=== PATIENT | male | born 1980 | race Caucasian/White ===

== ENCOUNTER → 2020-01-09 10:44 | Outpatient (BNVA) | payer MEDICAID, SELFPAY | PROVIDERS: Visit Provider Orthopaedic Surgery | DX: Z01.812 Encounter for preprocedural laboratory examination (principal); Z20.828 Contact with and (suspected) exposure to other viral communicable diseases | CPT/HCPCS: 87635 ==

== ENCOUNTER → 2020-01-15 05:38 | Day surgery (SDC) | payer MEDICAID, SELFPAY ==
[2020-01-14 09:43] VITALS: BMI 26.2
[2020-01-15] VITALS (10 sets, daily range): BP systolic 133–158; BP diastolic 88–96; PULSE 71–86; RESP 16–20; TEMP 36.1–36.7; O2SAT 95–100
--- NOTE | 2020-01-15 | XR_ITS ---
WS: [id number] Exam: XR lumbar spine 2-3V* [id number] Date/Time of Exam: 01/15/2020 12:00 AM Reason For Exam: DORSALGIA, INTERVERTEBRAL DISC PLACEMENT Limited AP and lateral C-arm images of the lower lumbar spine are submitted for evaluation. Surgical instruments are located at the level of the L4-5 disc in both the AP and lateral projections . This is apparently for surgical localization and planning. The visualized bony elements of the lowe r lumbar spine are otherwise unremarkable in appearance.
[2020-01-15] MEDS: gabapentin 300 mg Capsule PO (06:07)
[2020-01-15] MEDS: sodium chloride 0.9% 1,000 ML 30 ML IV (06:07)
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
--- NOTE | 2020-01-15 06:32 | W.PM.OPSUD ---
Surgery/Procedure H&P Update DATE OF PROCEDURE: January 15, 2020 DATE H&P PERFORMED: 01/09/20 H&P UPDATE INFORMATION: I have reviewed H&P completed within last 30 days, I have examined patient prior to procedure and No changes to prior documentation PREOP DIAGNOSIS: L4/5 Disk herniation and L5/S1 stenosis PLANNED PROCEDURE: Operation Date: 01/15/20 07:00 Proposed Procedures p Left L4-L5 discectomy L4-S1 Laminectomy 77686 28732 82755 27732 M54.9 M51.26(Left) - Seferino Toledo DO
--- NOTE | 2020-01-15 08:58 | SUR.OPER ---
MIDAS DRILL, MICROSCOPE AND C-ARM USED FOR PROCEDURE.
--- NOTE | 2020-01-15 10:38 | P.OP_ITS ---
Operative Report Date of procedure: January 15, 2020 Pre-op Diagnosis: L4/5 Disk herniation and L5/S1 stenosis Post-op diagnosis: same Procedure Done: 1. Laminectomy L4-5 with partial facetectomy and discectomy 2.Laminectomy L5/S1 with partial facetectomy Surgeon: Seferino Toledo Anesthesia: General Estimated blood loss (mL): 25 Condition: stable Disposition: PACU Procedure: Patient was brought to the operative suite placed in the prone position all areas of impingement were well padded patient was prepped and draped in normal sterile fashion skin sutures made at the L4-5 level confirming under C-arm guidance dilators were passed tubular retractor was inserted. See roscope was brought in and soft tissue was taken down with a Bovie. Next a drill was used to perform the laminectomy and partial facetectomy. Kerrison rongeurs and curettes were used to take down the remaining bone. Ligamentum flavum was taken down the ligament flavum was thickened the facet was then taken down medially the L5 nerve root was retracted medially discectomy was performed however patient had a hard disc did remove some of the disc enough to get the nerve root 3. Dura was in good repair wound was irrigated bleeding was coagulated with Surgi-Kb and bipolar Attention was then brought to the L5-S1 level again dilators of were passed tubular retractor was inserted direct visualization of the L5-S1 facet and lamina were identified. Bovie was used to clear the soft tissues. High-speed bur was used to perform the laminectomy and partial facetectomy. Curette and Kerrisons were used to take down remaining bone. Ligamentum flavum again was taken down from L5-S1. Ligamentum was seen and thickened dura was good repair partial mastectomies performed using high-speed bur and Kerrison S1 nerve root and was completely freed L5-S1 foramen in the S1 nerve root were traced and felt to be adequate decompress wounds were irrigated surgically was inserted and patient was was closed with 2-0 Vicryl and Monocryl suture and skin glue. Cell dressings were applied patient was transferred to the PACU in stable condition tape suture care assist is [facility] persist no complications you are coughing thanks thank you
--- NOTE | 2020-01-15 11:15 | SUR.PHASEI ---
1108- ORAL AIRWAY OUT, SAT 97% WITH ROOM AIR
--- NOTE | 2020-01-15 11:20 | ANE.PACU2 ---
Inpatient post-anesthesia follow up: Vital signs: Temperature 97.6 F Pulse Rate 72 Respiratory Rate 18 Blood Pressure 146/94 Pulse Oximetry 96 Oxygen Delivery Me thod Room Air Oxygen Flow Rate 6 Fraction of Inspir ed Oxygen Hydration adequate: Yes Nausea and vomiting: No Pain level: 5 Mental status: Baseline
[2020-01-15] MEDS: HYDROcodone-acetaminophen 5-325 mg Tablet 1 TAB PO (12:00)
--- NOTE | 2020-01-16 | SCC_ITS ---
Procedure Done: 1. Laminectomy L4-5 with partial facetectomy and discectomy 2.Laminectomy L5/S1 with partial facetectomy 22.6 seconds of fluoroscopic guidance, for a cumulative dose of 7.28 mGy, was provided to Dr. Toledo by the radiology department. C-arm images of the lumbar spine were saved for the patient's permanent record. [facility]
== END | disposition home or self-care (01) ==
PROVIDERS: PCP Family Medicine; Visit Provider Orthopaedic Surgery
PROC: 0RB30ZZ Excision of Cervical Vertebral Disc, Open Approach (ICD-10-PCS; CPT 22551; principal; 2020-01-15 07:00)
DX: M51.26 Other intervertebral disc displacement, lumbar region (principal); M48.07 Spinal stenosis, lumbosacral region; F17.290 Nicotine dependence, other tobacco product, uncomplicated
CPT/HCPCS: 63047; 63048; 12345; 72100; 76000; 96365; J0330; J0690; J1100; J2405; J2704; J3010; J3490; J7030

== ENCOUNTER 2020-04-23 06:00 | Outpatient (RCR) | payer MEDICAID, SELFPAY | END 2020-05-17 23:59 | disposition home or self-care (01) | LOC: MPT 06:00 | PROVIDERS: PCP Family Medicine; Referring Provider Orthopaedic Surgery; Visit Provider Orthopaedic Surgery | DX: Z47.89 Encounter for other orthopedic aftercare (principal) | CPT/HCPCS: 97110; 97140; 97161; 97530 ==

== ENCOUNTER 2020-05-26 08:59 | Outpatient (CLI) | payer MEDICAID, SELFPAY ==
--- NOTE | 2020-05-26 09:30 | MR_ITS ---
WS: [id number] MRI LUMBAR SPINE NONCONTRAST TECHNIQUE: Sagittal T1, T2 and STIR imaging. Axial T1 and T2 imaging. CLINICAL INFORMATION: M54.16 - Radiculopathy, lumbar region COMPARISON: None. FINDINGS: Small syrinx in the mid and lower thoracic cord seen on the maintenance chief imaging. This can be further evalua julio with thoracic spine MRI. Mild lumbar curve. No acute compression. Mild annular bulging L4-L5 and L5-S1. Prior hemilaminectomy left L4-5. L1-L2: Normal. L2-L3: Normal. L3-L4: Mild annular bulging with endplate ridging. Mild facet arthropathy. Mild left and no significa nt right foraminal narrowing. Mild facet arthropathy. L4-L5: Prior hemilaminectomy left L4-5. Mild facet arthropathy. Mild annular bulging with slight impi ngement on the left subarticular recess and traversing left L5 nerve root. Tiny annular fissure at th is level. Foramen are patent. L5-S1: Mild annular bulging with slight effacement of the ventral thecal sac. Mild facet arthropathy. Spinal canal and foramen are patent. Visualized pelvic bony structures: Normal. Paravertebral soft tissues: Normal. MR/MR lumbar spine wo con* [id number] IMPRESSION: 1. Prior hemilaminectomy left L4-5. Mild annular bulging with slight impingeme nt on the left subarticular recess and traversing left L5 nerve Tiny annular fi ssure at this level. 2. Mild left L3-4 bony foraminal narrowing. 3. Mild facet arthropathy L3-L5. 4. Small syrinx seen in the mid and lower thoracic cord on the maintenance chief imaging. Recommend further evaluation with thoracic spine MRI without and with gadoliniu m enhancement.
== END 2020-05-26 09:00 | disposition home or self-care (01) ==
LOC: RADSHAW 09:01
PROVIDERS: PCP Family Medicine; Visit Provider Orthopaedic Surgery
DX: M54.16 Radiculopathy, lumbar region (principal); M47.816 Spondylosis without myelopathy or radiculopathy, lumbar region; M96.1 Postlaminectomy syndrome, not elsewhere classified
CPT/HCPCS: 72120; 72148

== ENCOUNTER → 2020-06-08 12:48 | Outpatient (BNVA) | payer MEDICAID, SELFPAY | PROVIDERS: PCP Family Medicine; Visit Provider Orthopaedic Surgery | DX: Z01.818 Encounter for other preprocedural examination (principal) | CPT/HCPCS: 87635 ==

== ENCOUNTER 2020-06-12 10:25 | Day surgery (SDC) | payer MEDICAID, SELFPAY ==
[2020-06-01 11:07] VITALS: BMI 27.5
--- NOTE | 2020-06-01 11:58 | ANES.PREANE2 ---
Pre-Anesthetic Assessment Pre-Anesthetic Assessment: Height/Weight: Height 1.91 m Weight 99.79 kg Preop Diagnosis: lumbar stenosis Proposed Procedure: Operation Date: 06/12/20 12:00 Proposed Procedures p decompression with revision L4/5 84668 m54.16 g89.29(Not Applicable) - Seferino Toledo, DO Was Beta Daron taken within 24 hours: N/A Was Clonidine taken within 24 hours: N/A Social: Social History: Tobacco and No alcohol Exam: Pre-Anes Outpt Exam: alert, oriented x 3 and regular rate & rhythm Airway: Submandibular: WNL Cervical ROM: WNL MP: 2 Dentition: Chipped Pulmonary: Pulmonary: COPD Musc/skel: Musc/skel: Lower Back Pain Anesthetic Plan: ASA status: 2 Anesthesia: General Risk of > 500 ml blood loss (7ml/kg in children): No PFSH Anesthesia PFSH: Medical History Chronic radicular low back pain Herniated lumbar intervertebral disc Surgical History (Updated 06/01/20 @ 11:05 by Lynsey White RN) H/O knee surgery History of appendectomy Hx of tonsillectomy Family History Father Hypertension Diabetes Mother Hypertension Social History Smoking and tobacco status: current every day smoker e-cigarettes E-Cigarette Details: vaporizer device E-cig/vape details: 6% nicotine Alcohol intake: current Alcohol intake frequency: holidays/special occasions only Desire information about alcohol rehabilitation?: No Household members: spouse and family Data Anesthesia Cardiac Studies: No Data to Display
[2020-06-12] VITALS (15 sets, daily range): BP systolic 145–172; BP diastolic 98–115; PULSE 65–92; RESP 12–20; TEMP 36.2–36.6; O2SAT 94–99
--- NOTE | 2020-06-12 | XR_ITS ---
WS: [id number] Exam: XR lumbar spine 2-3V* [id number] Date/Time of Exam: 06/12/2020 12:00 AM Reason For Exam: decompression with revision L4/L5 Limited intraoperative AP and lateral images of the lower lumbar spine are submitted for evaluation. A surgical access port is positioned within the posterior soft tissues at the level of the L4-5 disc. No other significant finding on this limited series.
--- NOTE | 2020-06-12 | SCC_ITS ---
Procedure Done: Revision L4/5 laminectomy with partial facetectomy 16.7 seconds of fluoroscopic guidance, for a cumulative dose of 5.21 mGy, was provided to Dr. Toledo by the radiology department. C-arm images of the lumbar spine were saved for the patient's permanent record. [facility]
--- NOTE | 2020-06-12 11:12 | P.ANESUD_ITS ---
Pre-Anesthetic Update Pre-Anesthetic Assessment: Date of Surgery/Procedure: 06/12/20 Preop Elen gnosis: lumbar stenosis Proposed Procedure: Operation Date: 06/12/20 12:10 Proposed Procedures p decompression with revision L4/5 37657 m54.16 g89.29(Not Applicable) - Seferino Toledo, DO Any changes to Pre-Anesthetic Assessment?: No Last Intake: Intake Last Liquid Date 06/11/20 Last Liquid Time 18:00 Last Solid Date 06/11/20 Last Solid Time 18:00 Vitals: Temperature 97.8 F 06/12/20 10:46 Temperature Source Temporal Artery S can 06/12/20 10:46 Pulse Rate 79 06/12/20 10:46 Pulse Rhythm 06/12/20 11:03 Pulse Strength 3+ Normal 06/12/20 11:03 Respiratory Rate 18 06/12/20 10:46 Blood Pressure 150/103 06/12/20 10:46 Blood Pressure Brianna n 118 06/12/20 10:46 Pulse Oximetry 97 06/12/20 10:46 Oxygen Delivery Me thod 06/12/20 11:03 Exam: Pre-Anes Outpt Exam: alert, oriented x 3, clear to auscultation bilaterally and regular rate & rhythm Cardiac Studies: No Data to Display
[2020-06-12] MEDS: sodium chloride 0.9% 1,000 ML 30 ML IV (11:20)
--- NOTE | 2020-06-12 12:03 | W.PM.OPSUD ---
Surgery/Procedure H&P Update DATE OF PROCEDURE: June 12, 2020 DATE H&P PERFORMED: 05/26/20 H&P UPDATE INFORMATION: I have reviewed H&P completed within last 30 days, I have examined patient prior to procedure and No changes to prior documentation PREOP DIAGNOSIS: lumbar stenosis PLANNED PROCEDURE: Operation Date: 06/12/20 12:10 Proposed Procedures p decompression with revision L4/5 92049 m54.16 g89.29(Not Applicable) - Seferino Toledo DO
--- NOTE | 2020-06-12 13:38 | ANE.PACU2 ---
Inpatient post-anesthesia follow up: Airway intact: Yes Vital signs: Temperature 97.8 F Pulse Rate 79 Respiratory Rate 18 Blood Pressure 150/103 Pulse Oximetry 97 Oxygen Delivery Me thod Room Air Oxygen Flow Rate Fraction of Inspir ed Oxygen Hydration adequate: Yes Nausea and vomiting: No Pain level: 1 Mental status: Baseline
--- NOTE | 2020-06-12 13:40 | PM.OP ---
Operative Report Date of procedure: June 12, 2020 Pre-op Diagnosis: lumbar stenosis L4/5 left Post-op diagnosis: same Procedure Done: Revision L4/5 laminectomy with partial facetectomy Surgeon: Seferino Toledo Anesthesia: General Estimated blood loss (mL): 25 Condition: stable Disposition: PACU Procedure: Revision L4/5 laminectomy with partial facetectomy Patient is brought to the operative suite. After undergoing anesthesia they are placed in the supine position. All areas of impingement are well padded. Patient is then prepped and draped in the normal sterile fashion. A skin incision is made over the L4-5 level using previous skin incision. This is confirmed under c-arm guidance. A series of dilators are passed and the tubular retractor is docked on the L for lamina and L4-5 facet. A bovie is used to clear the soft tissue and scar tissue off the lamina and the L for 5 facet joint. A high speed melanie is then used to perform the laminectomy and take down the medial aspect of the L 4- 5 facet joint. A kerrison rongeure was then used to take down the remaining lamina and smooth the edge of the laminectomy up to the point where the ligamentum flavum attaches. Attention was then brought to the medial aspect of the facet joint. The remaining medial aspect of the superior and inferior aspect of the facet joint were taken down with the kerrison from the pedicle of L 4 to L 5. The facet joint had significant hypertrophy. Previous facetectomy site was identified and approximately 2 more millimeters of bone were taken out medially and part of the lamina was taken down superiorly Attention was then brought to the Ligamentum Flavum. The ligament was taken down from the lamina of L4 to L5 and out medially to the remaining facet joint. The ligament was scarred down and freed up using a curette. The dura was then exposed. The dura was in good repair however the was simply bruising to the lateral dura. The L4 nerve was then traced with a curette out the L4/5 foramen and found to be adequately decompressed. The L5 nerve was traced with a curette around the L5 pedicle. The lateral recess was opened with a kerrison helping to further decompress the L5 nerve. Wound is then irrigated copiously with saline and surgiflo is used to stop any bleeding. The tubular retractor is removed and the wound is closed with vicryl and monocryl suture. Glue is then used to protect the wound. A sterile dressing is then placed. Patient was then placed in the supine position and transferred to the PACU in stable condition.
[2020-06-12] MEDS: labetalol 5 mg/mL SDV 20mL 10 MG IVP (14:09)
[2020-06-12] MEDS: fentaNYL 50 mcg/mL INJ 2mL IVP ×2 (14:26→14:31)
[2020-06-12] MEDS: HYDROcodone-acetaminophen 5-325 mg Tablet 2 TAB PO (15:30)
--- NOTE | 2020-06-12 17:00 | ANE.PACU2 ---
Inpatient post-anesthesia follow up: Airway intact: Yes Vital signs: Temperature 97.4 F Pulse Rate 70 Respiratory Rate 18 Blood Pressure 145/98 Pulse Oximetry 95 Oxygen Delivery Me thod Room Air Oxygen Flow Rate Fraction of Inspir ed Oxygen Hydration adequate: Yes Nausea and vomiting: No Pain level: 2 Mental status: Baseline
== END 2020-06-12 15:30 | disposition home or self-care (01) ==
PROVIDERS: PCP Family Medicine; Visit Provider Orthopaedic Surgery
PROC: (CPT 63005; principal; 2020-06-12 12:00)
DX: M48.061 Spinal stenosis, lumbar region without neurogenic claudication (principal); G89.29 Other chronic pain; F17.290 Nicotine dependence, other tobacco product, uncomplicated
CPT/HCPCS: 63042; 72100; 76000; J0690; J1100; J2405; J2704; J2710; J3010; J3490; J7030

== ENCOUNTER 2020-11-02 06:00 | Outpatient (RCR) | payer MEDICAID, SELFPAY | END 2020-11-17 23:59 | disposition home or self-care (01) | LOC: MPT 06:00 | PROVIDERS: PCP Family Medicine; Referring Provider Orthopaedic Surgery; Visit Provider Orthopaedic Surgery | DX: M54.5 Low back pain (principal); G89.29 Other chronic pain | CPT/HCPCS: 97161; 97530 ==

== ENCOUNTER 2021-01-08 10:21 | Outpatient (RCR) | payer MEDICAID, SELFPAY | END 2021-01-17 23:59 | disposition home or self-care (01) | LOC: SPT 10:21 | PROVIDERS: PCP Family Medicine; Referring Provider Family Medicine; Visit Provider Family Medicine | DX: M54.16 Radiculopathy, lumbar region (principal); G89.29 Other chronic pain | CPT/HCPCS: 97110; 97161 ==

== ENCOUNTER 2021-01-18 06:00 | Outpatient (RCR) | payer MEDICAID, SELFPAY | END 2021-02-16 23:59 | disposition home or self-care (01) | LOC: SPT 06:00 | PROVIDERS: PCP Family Medicine; Visit Provider Family Medicine | DX: M54.16 Radiculopathy, lumbar region (principal); G89.29 Other chronic pain | CPT/HCPCS: 97110 ==

== ENCOUNTER 2021-02-17 06:00 | Outpatient (RCR) | payer MEDICAID, SELFPAY | END 2021-03-19 23:59 | disposition home or self-care (01) | LOC: SPT 06:00 | PROVIDERS: PCP Family Medicine; Visit Provider Family Medicine | DX: M54.16 Radiculopathy, lumbar region (principal); G89.29 Other chronic pain | CPT/HCPCS: 97110; 97530 ==